=== PATIENT | female | born 1965 | race Caucasian/White ===

== ENCOUNTER 2017-12-02 00:02 | Emergency (ER) | payer SELFPAY ==
[2017-12-02] MEDS ORDERED: LIDOCAINE 2%/EPINEPHRINE INJ 20 ML VIAL INJ ONE (06:44)
--- NOTE | 2017-12-02 06:45 | ER Document Report ---
ED General - General Chief Complaint: Insect Bite Stated Complaint: POSSIBLE BUG BITE Time Seen by Provider: 12/02/17 06:44 TRAVEL OUTSIDE OF THE [place] IN LAST 30 DAYS: No - HPI Notes: 10/ right buttocks pain sharp in nature without radiation nothing made it better or worse. Started Wednesday morning. Patient noted what she thought was a spider bite enlarged area raise. It ruptured now is draining purulent material. Patient noticed increasing erythema around the site now involving her entire right buttocks. Patient denies fever chills nausea vomiting diarrhea dysuria. - Related Data Allergies/Adverse Reactions: No Known Allergies Allergy (Verified 12/11/14 22:08) Past Medical History - Social History Smoking Status: Current Every Day Smoker Chew tobacco use (# tins/day): No Frequency of alcohol use: None Drug Abuse: None Family History: None Patient has suicidal ideation: No Patient has homicidal ideation: No - Past Medical History Cardiac Medical History: Reports: Hx Hypertension Renal/ Medical History: Denies: Hx Peritoneal Dialysis Past Surgical History: Reports: Hx Appendectomy, Hx Section, Hx Hysterectomy - Immunizations Hx Diphtheria, Pertussis, Tetanus Vaccination: Yes Review of Systems - Review of Systems Notes: REVIEW OF SYSTEMS: CONSTITUTIONAL: -fevers, -chills EENT: -eye pain, -difficulty swallowing, -nasal congestion CARDIOVASCULAR: -chest pain, -syncope. RESPIRATORY: -cough, -SOB GASTROINTESTINAL: -abdominal pain, -nausea, -vomiting, -diarrhea GENITOURINARY: -dysuria, -hematuria MUSCULOSKELETAL: -back pain, -neck pain SKIN: + rash or skin lesions. HEMATOLOGIC: -easy bruising or bleeding. LYMPHATIC: -swollen, enlarged glands. NEUROLOGICAL: -altered mental status or loss of consciousness, -headache, - neurologic symptoms PSYCHIATRIC: -anxiety, -depression. ALL OTHER SYSTEMS REVIEWED AND NEGATIVE. Physical Exam - Vital signs Vitals: Temp Pulse Resp BP Pulse Ox 97.5 F 74 18 125/74 100 12/02/17 05:09 12/02/17 05:09 12/02/17 05:09 12/02/17 05:09 12/02/17 05:09 - Notes Notes: PHYSICAL EXAMINATION: GENERAL: Well-appearing, well-nourished and in no acute distress. HEAD: Atraumatic, normocephalic. EYES: Pupils equal round and reactive to light, extraocular movements intact, sclera anicteric, conjunctiva are normal. ENT: nares patent, oropharynx clear without exudates. Moist mucous membranes. NECK: Normal range of motion, supple without lymphadenopathy LUNGS: Breath sounds clear to auscultation bilaterally and equal. No wheezes rales or rhonchi. HEART: Regular rate and rhythm without murmurs ABDOMEN: Soft, nontender, normoactive bowel sounds. No guarding, no rebound. No masses appreciated. EXTREMITIES: Normal range of motion, no pitting or edema. No cyanosis. NEUROLOGICAL: Cranial nerves grossly intact. Normal speech, normal gait. Normal sensory and motor exams. PSYCH: Normal mood, normal affect. SKIN: Warm, Dry, normal turgor, large area of induration right buttocks with overlying cellulitic areas about 4" x 4". Open abscess cavity 1 cm x 1 cm draining pus and purulent material. Course - Re-evaluation Re-evalutation: 12/02/17 06:57 Afebrile female, no history diabetes presents with abscess on her right buttocks. Stable vitals within normal limits No constitutional symptoms, denies nausea vomiting weakness or fatigue. 12/02/17 08:14 Incision and drainage performed on large buttocks abscess. Packing iodoform will initiate antibiotic therapy - Vital Signs Vital signs: Temp Pulse Resp BP Pulse Ox 97.5 F 74 18 125/74 100 12/02/17 05:09 12/02/17 05:09 12/02/17 05:09 12/02/17 05:09 12/02/17 05:09 Procedures - Incision and Drainage Buttock Type: Simple Anesthetic type: 1% Lidocaine w/epi Blade size: 11 I&D procedure: Betadine prep applied Incision Method: Incision made by scalpel Amount/type of drainage: 30 mL Discharge - Discharge Clinical Impression: Abscess, Cellulitis and abscess of buttock Condition: Stable Instructions: Abscess ([facility]), Post Incision and Drainage Additional Instructions: Return for wound check on Wednesday Referrals: KATIE CARO DO [Primary Care Provider] - Follow up as needed
[2017-12-02 08:25] VITALS: BP 121/76
== END 2017-12-02 08:33 | disposition home or self-care (01) ==
LOC: ER 00:02
DX: L02.31 Cutaneous abscess of buttock (principal); L03.317 Cellulitis of buttock; F17.200 Nicotine dependence, unspecified, uncomplicated; I10 Essential (primary) hypertension
CPT/HCPCS: 99281; 10060; A6266; J3490

== ENCOUNTER 2017-12-06 13:56 | Emergency (ER) | payer SELFPAY ==
--- NOTE | 2017-12-06 15:07 | ER Document Report ---
ED Wound - General Chief Complaint: Wound Recheck Stated Complaint: WOUND RECHECK Time Seen by Provider: 12/06/17 15:05 Mode of Arrival: Ambulatory Information source: Patient Notes: 51-year-old female presented ED for a wound recheck to her right buttocks. She had a I&D done on 12/02/2017 which was packed with iodoform. She was instructed to return to have the packing removed. Patient is alert and oriented respirations regular. A steady gait. She states that she has finished her antibiotics but the pain has decreased a lot in her abscess. She states she is now able to sit but she really wants the packing out. TRAVEL OUTSIDE OF THE [place] IN LAST 30 DAYS: No - HPI Patient complains to provider of: Other - Recheck for an abscess Quality of pain: Achy Severity: None Pain Level: Denies Context: Other - NB of an abscess Skin Color: Other - Abscess I&D on 12/02/2017 packing intact. Associated Symptoms: Drainage - Related Data Allergies/Adverse Reactions: No Known Allergies Allergy (Verified 12/06/17 13:59) Past Medical History - General Information source: Patient - Social History Smoking Status: Current Every Day Smoker Cigarette use (# per day): Yes Smoking Education Provided: Yes - 4 minutes Frequency of alcohol use: None Drug Abuse: None Lives with: Family Family History: None Patient has suicidal ideation: No Patient has homicidal ideation: No - Past Medical History Cardiac Medical History: Reports: Hx Hypertension Pulmonary Medical History: Reports: None EENT Medical History: Reports: None Neurological Medical History: Reports: None Endocrine Medical History: Reports: None Renal/ Medical History: Reports: None Malignancy Medical History: Reports: None GI Medical History: Reports: None Musculoskeletal Medical History: Reports None Skin Medical History: Reports Hx Cellulitis Psychiatric Medical History: Reports: None Traumatic Medical History: Reports: None Infectious Medical History: Reports: None Past Surgical History: Reports: Hx Appendectomy, Hx Section, Hx Hysterectomy - Immunizations Hx Diphtheria, Pertussis, Tetanus Vaccination: Yes Review of Systems - Review of Systems Constitutional: No symptoms reported EENT: No symptoms reported Cardiovascular: No symptoms reported Respiratory: No symptoms reported Gastrointestinal: No symptoms reported Genitourinary: No symptoms reported Female Genitourinary: No symptoms reported Musculoskeletal: No symptoms reported Skin: Other - Intact to the right buttocks no redness or swelling around the area. Patient states the area is much less tender than her last visit. She states she is completed her antibiotics. Hematologic/Lymphatic: No symptoms reported Neurological/Psychological: No symptoms reported -: Yes All other systems reviewed and negative Physical Exam - Vital signs Vitals: Temp Pulse Resp BP Pulse Ox 97.8 F 84 18 146/70 H 97 12/06/17 14:12 12/06/17 14:12 12/06/17 14:12 12/06/17 14:12 12/06/17 14:12 Interpretation: Normal - General General appearance: Appears well, Alert - HEENT Head: Normocephalic, Atraumatic Eyes: Normal Pupils: PERRL - Respiratory Respiratory status: No respiratory distress Chest status: Nontender Breath sounds: Normal Chest palpation: Normal - Cardiovascular Rhythm: Regular Heart sounds: Normal auscultation Murmur: No - Abdominal Inspection: Normal Distension: No distension Bowel sounds: Normal Tenderness: Nontender Organomegaly: No organomegaly - Back Back: Normal, Nontender - Extremities General upper extremity: Normal inspection, Nontender, Normal color, Normal ROM , Normal temperature General lower extremity: Normal inspection, Nontender, Normal color, Normal ROM , Normal temperature, Normal weight bearing. No: Marilia's sign - Neurological Neuro grossly intact: Yes Cognition: Normal Orientation: AAOx4 [place] Coma Scale Eye Opening: Spontaneous [place] Coma Scale Verbal: Oriented [place] Coma Scale Motor: Obeys Commands [place] Coma Scale Total: 15 Speech: Normal Motor strength normal: LUE, RUE, LLE, RLE Sensory: Normal - Psychological Associated symptoms: Normal affect, Normal mood - Skin Skin Temperature: Warm Skin Moisture: Dry Skin Color: Normal Location of irregularity: Other - Buttocks I&D site no redness no swelling minimal drainage to the dressing. Packing removed and replaced. Patient instructed to remove the packing in 48-72 hours. Course - Re-evaluation Re-evalutation: 12/06/17 21:43 Packing was removed from the I&D site to the right buttocks. Site was irrigated with 50 cc of normal saline then repacked and a dressing applied. Patient instructed to remove the packing in 48-72 hours. Patient instructed to shower but not to sit in the bath until the site was healed. Patient given instructions on when to return to the ED or her primary care doctor. Patient able to verbalize understanding of instructions and agreement with treatment plan. - Vital Signs Vital signs: Temp Pulse Resp BP Pulse Ox 97.9 F 88 18 144/77 H 98 12/06/17 15:15 12/06/17 15:15 12/06/17 15:15 12/06/17 15:15 12/06/17 15:15 Discharge - Discharge Clinical Impression: Abscess re-check Condition: Stable Disposition: HOME, SELF-CARE Additional Instructions: ABSCESS: You have an abscess (boil). This a pus-forming infection, usually due to staph. Some boils may be left to drain on their own, but most require lancing. From the time the tender lump first appears, it may be three or four days before the abscess is ready to milena. Local heat and rest help at this stage of treatment. An antibiotic may prevent spread of the infection. Once the abscess is opened, packing may be placed into it. This is done so pus is not sealed inside by premature closure of the cavity. The packing will be removed at your follow-up visit or you may be advised to remove it yourself at home. Sometimes this packing must be replaced a few times during healing. The wound will heal with surprisingly little scar. Depending on the size and location of an abscess, healing can take one to four weeks. You may shower and wash the area around the incision site two or three times a day. Antibiotics may be prescribed, but are usually not necessary after an abscess has been drained. If you develop fever, chills, worsening pain, or increasing swelling in the area, call the doctor or return immediately. Please remove packing in 48-72 hours, you can take a shower starting today but please do not remove the packing until instructed. After you remove the packing you can start using a sitz bath to help it completely healed. Do not sit in a regular bathtub until it is healed. FOLLOW-UP CARE: Most simple abscesses will not require a follow up visit. If you had packing placed in the abscess, remove it as instructed by the physician. If you have been referred to a physician for follow-up care, call the physicians office for an appointment as you were instructed or within the next two days. If you experience worsening or a significant change in your symptoms, return to the Emergency Department at any time for re-evaluation. Forms: Elevated Blood Pressure Referrals: KATIE CARO DO [NO LOCAL MD] - Follow up as needed
[2017-12-06 15:16] VITALS: BP 144/77
== END 2017-12-06 15:20 | disposition home or self-care (01) ==
LOC: ER 13:56
DX: Z48.01 Encounter for change or removal of surgical wound dressing (principal); L02.31 Cutaneous abscess of buttock; I10 Essential (primary) hypertension; F17.210 Nicotine dependence, cigarettes, uncomplicated; Z71.6 Tobacco abuse counseling
CPT/HCPCS: 99282; A6266

== ENCOUNTER 2019-09-28 21:44 | Emergency (ER) | payer SELFPAY ==
[2019-09-28] MEDS ORDERED: OXYCODONE-ACETAMINOPHEN 5-325 MG TABLET PO ONE (23:03)
[2019-09-28] MEDS ORDERED: ONDANSETRON 4 MG TAB.RAPDIS PO ONE (23:03)
--- NOTE | 2019-09-28 23:05 | ER Document Report ---
ED Medical Screen (RME) - General Chief Complaint: Laceration Stated Complaint: LEFT HAND INJURY Time Seen by Provider: 09/28/19 22:58 Primary Care Provider: POLO WATSON NP [Primary Care Provider] - Follow up as needed Notes: 53-year-old female chief complaint of injuring the left hand/wrist. She states her hand got caught between the moving parts of a ladder, she had a canker handout, this caused small skin tears to her hand and fourth finger along with swelling to the hand. She is right-handed. She reports her tetanus is up-to-date within 5 years. She is not a diabetic, not on blood thinners. She denies any other injuries. TRAVEL OUTSIDE OF THE [place] IN LAST 30 DAYS: No - Related Data Allergies/Adverse Reactions: No Known Allergies Allergy (Verified 12/06/17 13:59) Past Medical History - Past Medical History Cardiac Medical History: Reports: Hx Hypertension Renal/ Medical History: Denies: Hx Peritoneal Dialysis Skin Medical History: Reports Hx Cellulitis Psychiatric Medical History: Reports: Hx Bipolar Disorder, Hx Depression - and anxiety Past Surgical History: Reports: Hx Appendectomy, Hx Section, Hx Hysterectomy - Immunizations Hx Diphtheria, Pertussis, Tetanus Vaccination: Yes Physical Exam - Vital signs Vitals: Temp Pulse Resp BP Pulse Ox 98.1 F 89 18 141/80 H 99 09/28/19 21:58 09/28/19 21:58 09/28/19 21:58 09/28/19 21:58 09/28/19 21:58 - Extremities Hand: Other - Soft tissue swelling with ecchymosis over the third and fourth MCP joint areas, there is a small skin tear over the dorsum of the mid hand and also over the proximal aspect of the dorsal fourth digit. Full range of motion of the hand, normal strength against resistance in flexion and extension of the fingers, normal capillary refill and sensation. There is some generalized tenderness over the wrist as well without swelling noted. Normal elbow and shoulder exam. Course - Re-evaluation Re-evalutation: I have greeted and performed a rapid initial assessment of this patient. A comprehensive ED assessment and evaluation of the patient, analysis of test results and completion of the medical decision making process will be conducted by additional ED providers. - Vital Signs Vital signs: Temp Pulse Resp BP Pulse Ox 98.1 F 89 18 141/80 H 99 05/07/20 23:00 09/28/19 21:58 09/28/19 21:58 09/28/19 21:58 09/28/19 21:58 Doctor's Discharge - Discharge Referrals: POLO WATSON RN MATERNAL CHILD [Primary Care Provider] - Follow up as needed
--- NOTE | 2019-09-29 00:04 | RADIOLOGY REPORT (SQ) ---
EXAM DESCRIPTION: Three views of the left wrist CLINICAL HISTORY: 53 years Female, injury, swelling, pain slammed into a ladder. COMPARISON: None. FINDINGS: Bone mineralization is normal. Alignment is anatomic. A well-corticated cyst is noted in the distal ulna. No acute fractures seen. No erosions or periostitis. Subtle soft tissue swelling is present at the level of the MCP joints. IMPRESSION: Subtle soft tissue swelling. No fracture.
--- NOTE | 2019-09-29 00:05 | RADIOLOGY REPORT (SQ) ---
EXAM DESCRIPTION: Three views of the left hand CLINICAL HISTORY: 53 years Female, injury, swelling, pain slammed into a ladder. Pain. COMPARISON: None. FINDINGS: Soft tissue swelling is identified at the level of the MCP joints. Alignment of the hand is anatomic. Bone mineralization is normal. No fracture. No erosions or periostitis. No radiopaque foreign body in the soft tissues. IMPRESSION: Soft tissue swelling. No fracture.
[2019-09-29 00:39] VITALS: BP 137/86
--- NOTE | 2019-09-29 00:39 | ER Document Report ---
HPI - HPI Time Seen by Provider: 09/28/19 22:58 Pain Level: 2 Context: Patient is a 53-year-old female with a chief complaint of injuring the left hand/wrist. She states her hand got caught between the moving parts of a ladder, she had a canker handout, this caused small skin tears to her hand and fourth finger along with swelling to the hand. She is right-handed. She reports her tetanus is up-to-date within 5 years. She is not a diabetic, not on blood thinners. She denies any other injuries. - REPRODUCTIVE Reproductive: DENIES: : Past Medical History - General Information source: Patient - Social History Smoking Status: Current Every Day Smoker Frequency of alcohol use: None Drug Abuse: None Lives with: Family Family History: None Patient has homicidal ideation: No - Past Medical History Cardiac Medical History: Reports: Hx Hypertension Renal/ Medical History: Denies: Hx Peritoneal Dialysis Skin Medical History: Reports Hx Cellulitis Psychiatric Medical History: Reports: Hx Bipolar Disorder, Hx Depression - and anxiety Past Surgical History: Reports: Hx Appendectomy, Hx Section, Hx Hysterectomy - Immunizations Immunizations up to date: Yes Hx Diphtheria, Pertussis, Tetanus Vaccination: Yes Vertical Provider Document - CONSTITUTIONAL General Appearance: WD/WN, No Apparent Distress - INFECTION CONTROL TRAVEL OUTSIDE OF THE [place] IN LAST 30 DAYS: No - HEENT HEENT: Atraumatic, Normal ENT Exam, Normocephalic - NECK Neck: Normal Inspection - RESPIRATORY Respiratory: Breath Sounds Normal, No Respiratory Distress, Chest Non-Tender - CARDIOVASCULAR Cardiovascular: Regular Rate, Regular Rhythm - GI/ABDOMEN Gastrointestinal: Abdomen Soft, Abdomen Non-Tender. negative: Abdomen Tender - BACK Back: Normal Inspection - MUSCULOSKELETAL/EXTREMETIES Musculoskeletal/Extremeties: Tender - Soft tissue swelling with ecchymosis over the third and fourth MCP joint areas, there is a small skin tear over the dorsum of the mid hand and also over the proximal aspect of the dorsal fourth digit. Full range of motion of the hand, normal strength against resistance in flexion and extension of the fingers, normal capillary refill and sensation. There is some generalized tenderness over the wrist as well without swelling noted. Normal elbow and shoulder exam. - NEURO Level of Consciousness: Awake, Alert, Appropriate Motor/Sensory: No Motor Deficit, No Sensory Deficit - DERM Integumentary: Warm, Dry, No Rash Course - Re-evaluation Re-evalutation: X-rays negative for fracture, evaluation is reassuring, no noted snuffbox tenderness, swelling of the dorsum of the hand only with only skin abrasions and no deep wounds. Area was cleaned, dressed, patient placed in cock-up splint for the wrist. Discussed care, follow-up, expectations, return precautions. Patient states appreciation and agreement. - Vital Signs Vital signs: Temp Pulse Resp BP Pulse Ox 97.6 F 79 17 137/86 H 94 09/29/19 00:38 09/29/19 00:38 09/29/19 00:38 09/29/19 00:38 09/29/19 00:38 Procedures - Immobilization Left hand/wrist Pre-Proc Neuro Vasc Exam: Normal Immobilizer type: Cock-up Performed by: RN Post-Proc Neuro Vasc Exam: Normal Alignment checked and good: Yes Discharge - Discharge Clinical Impression: Left wrist pain, Skin abrasion Injury of left hand Qualifiers: Encounter type: initial encounter Qualified Code(s): S69.92XA - Unspecified injury of left wrist, hand and finger(s), initial encounter Condition: Stable Disposition: HOME, SELF-CARE Additional Instructions: The x-ray shows soft tissue swelling but no fracture. You have skin abrasions but no other concerning findings. I recommend icing the area frequently, at least 3-4 times a day for 10 to 15 minutes for the first couple of days, apply topical antibiotics to the area, wear the supportive splint, keep clean dressing over the area. Take the anti-inflammatories as prescribed. Rest the hand. Symptoms should simply resolve. Return for any concerning symptoms including severe worsening swelling or pain, developing spreading redness, discolored drainage, fever, or any other concerning symptoms. Prescriptions: Naproxen 500 mg PO BID PRN #20 tablet PRN Reason: Referrals: POLO WATSON NP [COMMUNITY BASED STAFF] - Follow up as needed
== END 2019-09-29 00:53 | disposition home or self-care (01) ==
LOC: ER 21:44
DX: S60.512A Abrasion of left hand, initial encounter (principal); S60.222A Contusion of left hand, initial encounter; S61.215A Laceration without foreign body of left ring finger without damage to nail, initial encounter; W23.0XXA Caught, crushed, jammed, or pinched between moving objects, initial encounter; F17.200 Nicotine dependence, unspecified, uncomplicated
CPT/HCPCS: 99283; 73130; 73110; S0119

== ENCOUNTER 2020-01-13 23:53 | Emergency (ER) | payer SELFPAY ==
[2020-01-14 00:12] VITALS: BP 125/76
[2020-01-14] MEDS ORDERED: FAMOTIDINE 20 MG TABLET PO ONE (01:23)
[2020-01-14] MEDS ORDERED: PREDNISONE 20 MG TABLET PO ONE (01:23)
[2020-01-14] MEDS ORDERED: DIPHENHYDRAMINE HCL 50 MG CAPSULE PO ONE (01:23)
--- NOTE | 2020-01-14 02:14 | ER Document Report ---
HPI - HPI Time Seen by Provider: 01/14/20 01:22 Pain Level: 2 Context: Patient is a 54-year-old female that comes to the emergency department for chief complaint of a rash that is on her upper back, neck, and left posterior arm. She states that she has had recurrence of this rash couple times, it seems to come back when she is stressed, she was recently evaluated and given triamcinolone for this which helps some but then it started coming back tonight worse and she could not sleep because of the itching. She denies pain, fever. She denies diabetes. She denies any other complaints. - REPRODUCTIVE Reproductive: DENIES: : Past Medical History - General Information source: Patient - Social History Smoking Status: Current Every Day Smoker Lives with: Family Family History: None Patient has homicidal ideation: No - Past Medical History Cardiac Medical History: Reports: Hx Hypertension Renal/ Medical History: Denies: Hx Peritoneal Dialysis Skin Medical History: Reports Hx Cellulitis Psychiatric Medical History: Reports: Hx Bipolar Disorder, Hx Depression - and anxiety Past Surgical History: Reports: Hx Appendectomy, Hx Section, Hx Hysterectomy - Immunizations Immunizations up to date: Yes Hx Diphtheria, Pertussis, Tetanus Vaccination: Yes Vertical Provider Document - CONSTITUTIONAL General Appearance: WD/WN, No Apparent Distress - INFECTION CONTROL TRAVEL OUTSIDE OF THE [place] IN LAST 30 DAYS: No - HEENT HEENT: Atraumatic, Normal ENT Exam, Normocephalic - NECK Neck: Normal Inspection - RESPIRATORY Respiratory: Breath Sounds Normal, No Respiratory Distress. negative: Wheezing - CARDIOVASCULAR Cardiovascular: Regular Rate, Regular Rhythm - GI/ABDOMEN Gastrointestinal: Abdomen Soft, Abdomen Non-Tender. negative: Abdomen Tender - BACK Back: Normal Inspection - MUSCULOSKELETAL/EXTREMETIES Musculoskeletal/Extremeties: MAEW, FROM, Non-Tender - NEURO Level of Consciousness: Awake, Alert, Appropriate - DERM Integumentary: Warm, Dry, Rash - There is a scattered erythematous rash over the left upper back, shoulder, and posterior arm. Mild excoriations. No induration, fluctuance, vesicles, pustules, hives, bulla. Course - Re-evaluation Re-evalutation: Rashes suggestive of atopic dermatitis without secondary infection or any other concerning findings. Patient having limited success with topical triamcinolone and now the area is much more diffuse. Patient will be given steroid trial, antihistamines, discussed primary care follow-up and return precautions. Patient states understanding and agreement. - Vital Signs Vital signs: Temp Pulse Resp BP Pulse Ox 98.5 F 111 H 18 125/76 94 01/14/20 00:11 01/14/20 00:11 01/14/20 00:11 01/14/20 00:11 01/14/20 00:11 Discharge - Discharge Clinical Impression: Rash and nonspecific skin eruption Condition: Stable Disposition: HOME, SELF-CARE Additional Instructions: Your rash is most suggestive of eczema. I recommend the steroid as prescribed, and you can continue the topical steroid as well. I recommend the prescribed antihistamines for 1 week. Avoid scratching the areas, if you do clean and dressed with topical antibiotic. Follow-up with primary care for additional management. Return if you worsen including severe worsening rash, spreading redness, swelling, fever, or any other concerning symptoms. Prescriptions: Prednisone [Deltasone 10 mg Tablet] 10 mg PO ASDIR PRN #21 tablet PRN Reason: Famotidine [Pepcid 20 mg Tablet] 20 mg PO BID #14 tablet Cetirizine HCl [Zyrtec 10 mg Tablet] 10 mg PO DAILY #30 tablet
== END 2020-01-14 01:35 | disposition home or self-care (01) ==
LOC: ER 23:53
DX: R21 Rash and other nonspecific skin eruption (principal); L29.8 Other pruritus; F17.200 Nicotine dependence, unspecified, uncomplicated; I10 Essential (primary) hypertension; Z87.2 Personal history of diseases of the skin and subcutaneous tissue
CPT/HCPCS: 99283; J7512

== ENCOUNTER 2020-05-08 15:27 | Emergency (ER) | payer SELFPAY ==
[2020-05-08] MEDS ORDERED: NALOXONE HCL INJ 2 MG/2 ML DISP.SYRIN IV ONE (15:34)
[2020-05-08] MEDS ORDERED: NALOXONE HCL INJ 2 MG/2 ML DISP.SYRIN ONE (15:35)
[2020-05-08] MEDS ORDERED: ONDANSETRON HCL INJ/PF 4 MG/2 ML SDV ONE (15:43)
[2020-05-08] MEDS ORDERED: NORMAL SALINE 1000 ML 1,000 ML IV ONE (15:44)
[2020-05-08] MEDS ORDERED: ONDANSETRON HCL INJ/PF 4 MG/2 ML SDV IV ONE (15:44)
[2020-05-08 17:10] LABS: HEMATOCRIT 40.2 % (36.0-47.0); HEMOGLOBIN 13.5 g/dL (12.0-15.5); MEAN CORPUSCULAR HEMOGLOBIN 29.4 pg (27.0-33.4); MEAN CORPUSCULAR HGB CONC 33.5 g/dL (32.0-36.0); MEAN CORPUSCULAR VOLUME 88 fl (80-97); PLATELET COUNT 406 10^3/uL (150-450); RED BLOOD COUNT 4.57 10^6/uL (3.72-5.28); RED CELL DISTRIBUTION WIDTH 12.7 % (11.5-14.0); WHITE BLOOD COUNT 21.5 10^3/uL (4.0-10.5)
[2020-05-08 17:24] LABS: ALKALINE PHOSPHATASE 64 U/L (38-126); ANION GAP 8 (5-19); ASPARTATE AMINO TRANSFERASE 40 U/L (14-36); BILIRUBIN,DIRECT 0.2 mg/dL (0.0-0.4); BILIRUBIN,TOTAL 0.4 mg/dL (0.2-1.3); BLOOD UREA NITROGEN 15 mg/dL (7-20); CALCIUM 9.5 mg/dL (8.4-10.2); CARBON DIOXIDE 28 mmol/L (22-30); CHLORIDE 103 mmol/L (98-107); GLUCOSE 144 mg/dL (75-110); POTASSIUM 4.5 mmol/L (3.6-5.0); TOTAL PROTEIN 6.9 g/dL (6.3-8.2)
[2020-05-08 17:25] LABS: ACETAMINOPHEN < 10 ug/mL (10-30); ALCOHOL < 10 mg/dL (NONE DETECTED); SALICYLATE < 1.0 mg/dL (2.0-20.0)
[2020-05-08 17:32] LABS: ABSOLUTE LYMPHOCYTES# (MANUAL) 1.3 10^3/uL (0.5-4.7); ABSOLUTE MONOCYTES # (MANUAL) 1.1 10^3/uL (0.1-1.4); BASOPHILS % (MANUAL) 0 % (0-2); EOSINOPHILS % (MANUAL) 0 % (0-6); LYMPHOCYTES % (MANUAL) 6 % (13-45); MONOCYTES % (MANUAL) 5 % (3-13); SEGMENTED NEUTROPHILS % (MAN) 89 % (42-78); TOTAL CELLS COUNTED 100
[2020-05-08 17:33] LABS: PLATELET COMMENT ADEQUATE; RBC MORPHOLOGY COMMENT NORMO-CYTIC/CHROMIC
[2020-05-08] MEDS ORDERED: ACETAMINOPHEN 325 MG TABLET PO ONE (18:05)
[2020-05-08] MEDS ORDERED: NALOXONE HCL INJ/PF 0.4 MG/1 ML SDV IV ONE (18:05)
--- NOTE | 2020-05-08 18:09 | ER Document Report ---
ED General - General Chief Complaint: Overdose Stated Complaint: POSSIBLE OD TRAVEL OUTSIDE OF THE [place] IN LAST 30 DAYS: No - HPI Notes: Patient is a 54-year-old female with a history of heroin abuse who presents to the emergency department for evaluation after an accidental heroin overdose. She states she believes it was cut with fentanyl. She was snorting heroin with a friend when they overdosed. She denies any suicidal or homicidal ideation. No visual or auditory hallucination. She denies use of any other illicit drugs. She denies drinking alcohol. She states that she has a little bit of a headache from the Narcan, she states it always gives her a headache. She denies any injection drug use. - Related Data Allergies/Adverse Reactions: No Known Allergies Allergy (Verified 05/08/20 15:41) Home Medications: states she is off her HTN meds due to financial cost Past Medical History - General Information source: Patient - Social History Smoking Status: Current Every Day Smoker Chew tobacco use (# tins/day): No Frequency of alcohol use: Social Drug Abuse: Heroin, Marijuana, Methamphetamine Family History: None Patient has homicidal ideation: No - Past Medical History Cardiac Medical History: Reports: Hx Hypertension Renal/ Medical History: Denies: Hx Peritoneal Dialysis Skin Medical History: Reports Hx Cellulitis Psychiatric Medical History: Reports: Hx Bipolar Disorder, Hx Depression - and anxiety Past Surgical History: Reports: Hx Appendectomy, Hx Section, Hx Hysterectomy - Immunizations Immunizations up to date: Yes Hx Diphtheria, Pertussis, Tetanus Vaccination: Yes Review of Systems - Review of Systems Constitutional: No symptoms reported EENT: No symptoms reported Cardiovascular: No symptoms reported Respiratory: No symptoms reported Gastrointestinal: No symptoms reported Genitourinary: No symptoms reported Musculoskeletal: No symptoms reported Skin: No symptoms reported Neurological/Psychological: See HPI Physical Exam - Vital signs Vitals: Resp Pulse Ox 22 H 91 L 05/08/20 15:32 05/08/20 15:32 - Notes Notes: On initial exam this is a 53-year-old female, disheveled, who appears stated age, no acute distress. She is reduced respiratory rate, slurred speech, and constricted pupils, all consistent with opiate overdose. Narcan 2 mg administered. Vital signs reviewed, please refer to chart. Head is normocephalic, atraumatic. Pupils equal round, reactive to light. Neck is s upple without meningismus. Heart is regular rate and rhythm. Lungs are clear to auscultation bilaterally. Abdomen is soft, nontender, normoactive bowel sounds throughout. Extremities without cyanosis, clubbing. Posterior calves are nontender. Peripheral pulses are equal. Skin is warm and dry. Patient is more awake after administration of Narcan, pupils 4 mm and reactive. She moves all 4 extremities spontaneously. She does not appear to be reacting to internal stimuli. Course - Re-evaluation Re-evalutation: 05/08/20 18:08 Patient presents emergency department for evaluation. They were picked up by EMS after an apparent heroin overdose. Patient states she believes it was cut with fentanyl. She states she has been using less heroin as of late. During the course of her stay, she was initially treated with 2 mg of IV Narcan. At approximately 1805 going back in to reevaluate the patient, she had a decreased respiratory rate, constricted pupils in a darkened room. Decision was made to administer another dose of Narcan. She continued to complain of headaches of 650 mg of Tylenol ordered. Still awaiting remainder of labs. Otherwise patient is stable, we will continue to monitor. - Vital Signs Vital signs: Temp Pulse Resp BP Pulse Ox 97.7 F 15 115/90 H 97 05/08/20 18:35 05/08/20 20:01 05/08/20 20:01 05/08/20 20:01 - Laboratory Results Result Diagrams: 05/08/20 16:51 05/08/20 16:51 Laboratory Results Interpreted: 05/08/20 05/08/20 05/08/20 16:51 16:51 18:32 WBC 21.5 H Seg Neuts % (Manual) 89 H Lymphocytes % (Manual) 6 L Abs Neuts (Manual) 19.1 H Glucose 144 H AST 40 H ALT 58 H Urine Protein 30 H Urine Glucose (UA) >=500 H Salicylates < 1.0 L Acetaminophen < 10 L Critical Laboratory Results Reviewed: No Critical Results - Radiology Results Critical Radiology Results Reviewed: No Critical Results Discharge - Discharge Clinical Impression: LFTs abnormal, Polysubstance abuse Opiate overdose Qualifiers: Encounter type: initial encounter Injury intent: accidental or unintentional Qualified Code(s): T40.601A - Poisoning by unspecified narcotics, accidental (unintentional), initial encounter Leukocytosis, unspecified Qualifiers: Leukocytosis type: unspecified Qualified Code(s): D72.829 - Elevated white blood cell count, unspecified Condition: Stable Disposition: HOME, SELF-CARE Instructions: Narcotic Abuse ([facility]) Additional Instructions: As discussed, your liver functions and your white blood cell count were mildly elevated today. This should be rechecked by primary care provider in 1 to 2 weeks. Otherwise, please restrain from using illicit drugs. Seek out treatment for drug addiction and depression/anxiety. You have been given a referral sheet for further evaluation. Return to the emergency department for worsening or new concerning symptoms of any sort.
[2020-05-08 19:03] LABS: APPEARANCE,URINE SLIGHTLY-CLOUDY; BILIRUBIN,URINE NEGATIVE (NEGATIVE); COLOR,URINE YELLOW; GLUCOSE, URINE >=500 mg/dL (NEGATIVE); KETONES,URINE NEGATIVE (NEGATIVE); LEUKOCYTE ESTERASE,URINE NEGATIVE (NEGATIVE); NITRITE,URINE NEGATIVE (NEGATIVE); PROTEIN,URINE 30 mg/dL (NEGATIVE); URINE SPECIFIC GRAVITY 1.014; UROBILINOGEN,URINE NEGATIVE mg/dL (<2.0)
[2020-05-08 19:15] LABS: URINE BARBITURATES SCREEN NEGATIVE; URINE BENZODIAZEPINES SCREEN NEGATIVE; URINE COCAINE SCREEN NEGATIVE; URINE METHADONE SCREEN NEGATIVE; URINE PHENCYCLIDINE SCREEN NEGATIVE
[2020-05-08 19:31] LABS: URINE MARIJUANA (THC) SCREEN UNCONFIRMED POSITIVE
[2020-05-08 21:10] VITALS: BP 108/78
--- NOTE | 2020-05-08 21:57 | EKG REPORT ---
SEVERITY:- NORMAL ECG - SINUS RHYTHM : Confirmed by: Lina Moreno MD 08-May-2020 21:57:03
== END 2020-05-08 21:07 | disposition home or self-care (01) ==
LOC: ER 15:27
DX: T40.1X1A Poisoning by heroin, accidental (unintentional), initial encounter (principal); Y92.008 Other place in unspecified non-institutional (private) residence as the place of occurrence of the external cause; G44.40 Drug-induced headache, not elsewhere classified, not intractable; T50.7X5A Adverse effect of analeptics and opioid receptor antagonists, initial encounter; Y92.238 Other place in hospital as the place of occurrence of the external cause; F12.10 Cannabis abuse, uncomplicated; F15.10 Other stimulant abuse, uncomplicated; I10 Essential (primary) hypertension; T50.906A Underdosing of unspecified drugs, medicaments and biological substances, initial encounter; Z91.120 Patient's intentional underdosing of medication regimen due to financial hardship; Z91.14 Patient's other noncompliance with medication regimen; R79.89 Other specified abnormal findings of blood chemistry; D72.829 Elevated white blood cell count, unspecified; F17.200 Nicotine dependence, unspecified, uncomplicated
CPT/HCPCS: 93005; 96376; 99285; 96361; 96374; 96375; 36415; 80307 ×4; 85025; 80053; 81001; 93010; J2310 ×2; J2405; J7030